=== PATIENT | male | born 1995 | race African-American/Black ===

== ENCOUNTER 2022-05-26 10:14 | Emergency (ER) | payer MEDICAID ==
[~2022-05-26] VITALS: Ht 177.8 cm; Wt 80.0 kg
[~2022-05-26 10:14] MED LIST: DOXY100T2 MT
[2022-05-26 10:16] VITALS: BP 132/82
[2022-05-26] MEDS ORDERED: DOXY100C5 MT (11:27)
[2022-05-26] MEDS ORDERED: LIDOCAINE HCL/PF 1% 10 MG/ML 5ML VIAL INFIL ONE (11:30)
[2022-05-26] MEDS ORDERED: CEFTRIAXONE SODIUM 500 MG/VIAL IM ONE (11:30)
[2022-05-26 11:40] LABS: CLARITY URINE CLEAR (CLEAR); COLOR URINE YELLOW (YELLOW); KETONES URINE TRACE (NEGATIVE); LEUKOCYTE ESTERASE URINE TRACE (NEGATIVE); NITRITE URINE NEGATIVE (NEGATIVE); OCCULT BLOOD URINE NEGATIVE (NEGATIVE); PROTEIN URINE NEGATIVE (NEGATIVE); SPECIFIC GRAVITY URINE 1.027 (1.005-1.030)
== END 2022-05-26 12:36 | disposition home or self-care (01) ==
LOC: ER 10:14
DX: R36.9 Urethral discharge, unspecified (principal); J45.909 Unspecified asthma, uncomplicated
CPT/HCPCS: 81003; 96372; 99283; J0696; J3490; Z7610